=== PATIENT | male | born 1980 | race Hispanic/Latino ===

== ENCOUNTER 2022-05-13 11:00 | Emergency (ER) | payer OTHER ==
[~2022-05-13] VITALS: Ht 167.6 cm; Wt 63.6 kg
[2022-05-13 11:11] VITALS: BP 130/75
[2022-05-13 11:15] VITALS: BP 120/74
[2022-05-13 11:31] VITALS: BP 110/60
[2022-05-13 11:45] VITALS: BP 104/68
[2022-05-13 12:01] VITALS: BP 113/69
[2022-05-13] MEDS ORDERED: FLEXERIL5 M1 PO (12:15)
[2022-05-13] MEDS ORDERED: IBUPROFEN600 MG PO (12:15)
[2022-05-13 12:23] VITALS: BP 104/68
== END 2022-05-13 12:28 | disposition home or self-care (01) | DRG 552 ==
LOC: ED 11:00
DX: M54.42 Lumbago with sciatica, left side (principal); F17.210 Nicotine dependence, cigarettes, uncomplicated; X50.0XXA Overexertion from strenuous movement or load, initial encounter; Y93.89 Activity, other specified; Y92.89 Other specified places as the place of occurrence of the external cause; Y99.0 Civilian activity done for income or pay